=== PATIENT | male | born 1950 | race Caucasian/White ===

== ENCOUNTER → 2016-10-04 | Outpatient (CLI) | payer MEDICARE | LOC: RAD 14:34 | DX: M79.644 Pain in right finger(s) (principal) ==

== ENCOUNTER 2017-04-19 09:48 | Emergency (ER) | payer MEDICARE ==
[~2017-04-19] VITALS: Ht 182.8 cm; Wt 68.0 kg
[2017-04-19] MEDS ORDERED: OMEPRAZOLE40 MG PO (09:59)
[2017-04-19] MEDS ORDERED: METOPROLOL25 MG PO (09:59)
[2017-04-19] MEDS ORDERED: LISINOPRIL40 MG PO (09:59)
[2017-04-19] MEDS ORDERED: 'CLONIDINE0.1 MG PO (10:00)
[2017-04-19] MEDS ORDERED: HYDROCODONE BIT1 T28 PO (10:01)
[2017-04-19] MEDS ORDERED: CLINDAMYCIN150 MG PO (10:05)
[2017-04-19] MEDS ORDERED: Peridex 473 ML473 ML PO (10:05)
[2017-04-19] MEDS ORDERED: NAPROSYN500 MG PO (10:05)
== END 2017-04-19 10:24 | disposition home or self-care (01) ==
LOC: ED 09:48
DX: K04.7 Periapical abscess without sinus (principal); R03.0 Elevated blood-pressure reading, without diagnosis of hypertension; F17.200 Nicotine dependence, unspecified, uncomplicated; Z79.899 Other long term (current) drug therapy

== ENCOUNTER → 2018-07-28 | Outpatient (CLI) | payer MEDICARE ==
[~2018-07-28] MED LIST: 'CLONIDINE0.1 MG PO; CLINDAMYCIN150 MG PO; HYDROCODONE BIT1 T28 PO; LISINOPRIL40 MG PO; METOPROLOL25 MG PO; NAPROSYN500 MG PO; OMEPRAZOLE40 MG PO; Peridex 473 ML473 ML PO
== END | disposition home or self-care (01) ==
LOC: RAD 14:00
DX: M25.472 Effusion, left ankle (principal); M25.572 Pain in left ankle and joints of left foot

== ENCOUNTER → 2018-08-05 | Outpatient (CLI) | payer MEDICARE | END | disposition home or self-care (01) | LOC: US 01:42 | DX: I73.9 Peripheral vascular disease, unspecified (principal); I87.2 Venous insufficiency (chronic) (peripheral); M25.572 Pain in left ankle and joints of left foot ==

== ENCOUNTER → 2018-08-25 | Outpatient (CLI) | payer MEDICARE | END | disposition home or self-care (01) | LOC: US 04:18 | DX: I65.23 Occlusion and stenosis of bilateral carotid arteries (principal); H91.92 Unspecified hearing loss, left ear; R93.0 Abnormal findings on diagnostic imaging of skull and head, not elsewhere classified ==

== ENCOUNTER → 2018-08-27 | Outpatient (CLI) | payer MEDICARE ==
--- NOTE | ~2018-08-27 | EKG ---
[place], [place] ELECTROCARDIOGRAM REPORT NAME: KASSY WYNN UNIT #: [id number] ROOM: DOCTOR: EPIPHANY DRAFT REPORT BIRTHDATE: [birth year] [facility] Test Date: 2018-08-27 Test Time: 13:58:13 Pat Name: KASSY WYNN Department: Room: Gender: [employer]: DAVE : 1950 Requested By: KEIRY COFFEY Order Number: [id number] Reading MD: Rogerio Hunt MD Measurements Intervals [place] Rate: 80 P: 81 ND: 207 QRS: -57 QRSD: 101 T: 61 QT: 375 QTc: 433 Interpretive Statements Sinus rhythm Multiple premature complexes, vent \T\ supraven Right atrial enlargement Incomplete RBBB and LAFB Low voltage, extremity leads No previous ECG available for comparison Electronically Signed On 08-30-2018 8:27:57 PST by Rogerio Hunt MD CM:EKGRPT:ELECTROCARDIOGRAM REPORT [id number] KEIRY COFFEY EPIPHANY DRAFT REPORT KEIRY COFFEY
== END | disposition home or self-care (01) ==
LOC: CARD 13:33
DX: R93.0 Abnormal findings on diagnostic imaging of skull and head, not elsewhere classified (principal); H91.92 Unspecified hearing loss, left ear

== ENCOUNTER → 2018-09-07 | Outpatient (CLI) | payer MEDICARE | END | disposition home or self-care (01) | LOC: CARD 02:53 | DX: R93.0 Abnormal findings on diagnostic imaging of skull and head, not elsewhere classified (principal); H91.92 Unspecified hearing loss, left ear ==

== ENCOUNTER → 2018-09-09 | Outpatient (CLI) | payer MEDICARE ==
--- NOTE | ~2018-09-09 | HM ---
[place], [place] HOLTER MONITOR REPORT [id number] UNIT #: [id number] ROOM: DOCTOR: FORREST GREENBERG MD BIRTHDATE: [birth year] DOS: 09/14/2018 A 48-HOUR HOLTER MONITOR REFERRED BY: Sole Diana NP Study was recorded from 09/09/2018 through 09/11/2018. The tape was analyzed and this report was dictated on 09/14/2018. INDICATIONS: Abnormal electrocardiogram. FINDINGS: The patient was monitored for 48 hours. The basic rhythm was sinus. Average heart rate was 80 beats per minute with heart rates varying from 50-125 beats per minute. The fastest heartbeat occurred on the second day at a time when his diary indicated he was taking a 1 mile walk. The patient had occasional premature ventricular contractions. These were all isolated. No ventricular tachycardia was recorded. The patient had frequent premature atrial contractions with multiple short runs of SVT lasting up to 4 beats in duration. His most rapid heartbeat during SVT was 160 beats per minute. Rare blocked PACs were seen. The longest R-R interval was 1.8 seconds and no prolonged pauses were seen. The patient did return a diary during which he mentioned puffing on a cigar. No arrhythmias were related to these activities. As noted, his most rapid heart rate occurred when he was taking a 1 mile walk. IMPRESSION: Sinus rhythm with frequent premature atrial contractions and multiple short runs of SVT lasting up to 4 beats in duration. No prolonged SVT and no ventricular tachycardia was recorded. No prolonged pauses were seen. FORREST GREENBERG MD CM:HOLTER:HOLTER MONITOR REPORT [id number] FORREST GREENBERG MD
== END | disposition home or self-care (01) ==
DX: R93.0 Abnormal findings on diagnostic imaging of skull and head, not elsewhere classified (principal); H91.92 Unspecified hearing loss, left ear

== ENCOUNTER → 2020-08-16 | Outpatient (CLI) | payer MEDICARE | END | disposition home or self-care (01) | LOC: COVID19 10:10 | PROVIDERS: ATTEND Nurse Practitioner Family | DX: Z20.828 Contact with and (suspected) exposure to other viral communicable diseases (principal) ==

== ENCOUNTER → 2021-05-27 | Outpatient (CLI) | payer MEDICARE | END | disposition home or self-care (01) | LOC: CARD 13:29 | PROVIDERS: ATTEND Nurse Practitioner Family | DX: I21.9 Acute myocardial infarction, unspecified (principal); I45.19 Other right bundle-branch block; I63.9 Cerebral infarction, unspecified; I67.9 Cerebrovascular disease, unspecified; I48.91 Unspecified atrial fibrillation; K02.9 Dental caries, unspecified; I44.0 Atrioventricular block, first degree ==

== ENCOUNTER → 2021-08-30 | Outpatient (CLI) | payer OTHER ==
[2021-08-30 09:15] LABS: BASO % 0.4 % (0.0-1.0); EOS # 0.2 10*3/uL (0.0-0.4); EOS % 4.3 % (1.0-4.0); LYMPH # 1.6 10*3/uL (1.3-4.4); LYMPH % 31.1 % (27.0-41.0); MEAN CELL VOLUME 100.7 fl (80.0-94.0); MEAN CORPUSCULAR HGB 32.9 pg (27.0-31.0); MEAN CORPUSCULAR HGB CONC 32.6 g/dl (33.0-37.0); MONO # 0.5 10*3/uL (0.1-1.0); MONO % 10.2 % (3.0-9.0); NEUT # 2.8 10*3/uL (2.3-7.9); PLATELET COUNT AUTOMATED 186 10*3/uL (130-400); RED BLOOD COUNT 4.17 10*6/uL (4.50-5.90); RED CELL DISTRI WIDTH 12.5 % (0-14.5); WHITE BLOOD COUNT 5.1 10*3/uL (4.8-10.8)
[2021-08-30 09:35] LABS: CHLORIDE 109 mmol/L (98-107); POTASSIUM 3.9 mmol/L (3.5-5.1); SODIUM 142 mmol/L (136-145)
[2021-08-30 09:43] LABS: ALBUMIN 3.4 gm/dl (3.1-4.5); ALKALINE PHOSPHATASE 62 U/L (45-117); BUN 12 mg/dl (7-24); CHOLESTEROL 123 mg/dL (<200); CREATININE 1.18 mg/dL (0.70-1.30); LDL CHOLESTEROL 20 mg/dL (9-159); SGOT/AST 31 IU/L (3-35); SGPT/ALT 32 U/L (12-78); TRIGLYCERIDES 154 mg/dl (<150)
== END | disposition home or self-care (01) ==
LOC: LAB 08:49
PROVIDERS: ATTEND Nurse Practitioner Family
DX: I10 Essential (primary) hypertension (principal); E78.2 Mixed hyperlipidemia